=== PATIENT | female | born 1980 | race Caucasian/White ===

== ENCOUNTER 2024-02-11 21:17 | Outpatient (REF) | payer OTHER, SELFPAY | END 2024-02-11 21:18 | disposition home or self-care (01) | LOC: LAB 21:17 | PROVIDERS: Visit Provider Physician Assistant | DX: Z01.419 Encounter for gynecological examination (general) (routine) without abnormal findings (principal) | CPT/HCPCS: 87624; 88175 ==

== ENCOUNTER 2025-02-15 20:48 | Outpatient (REF) | payer OTHER, SELFPAY ==
--- OUTSIDE RECORDS SUMMARY | 2025-02-15 10:04 | XMS_ITS ---
Author Name Auto Generated Organization OHIP Care Team Providers Care Yoga Teacher Name Role Phone VAL PUGH Attending Unavailable HAYLEE DHALIWAL Attending Unavailable HAYLEE DHALIWAL Admitting Unavailable JOSH GONZALEZ Consulting Unavailable HAYLEE DHALIWAL Referring Unavailable JOSH GONZALEZ Consulting Unavailable Eamon LAMB Attending Unavailable Eamon LAMB Attending Unavailable PROBLEMS No Problem Records Found PROCEDURES No Procedure Records Found RESULTS ALLERGIES DATE TYPE / CODE NAME / CODE REACTION SEVERITY SOURCE [id number](SNOMED CT) No Known Allergies [facility] [id number](SNOMED CT) Unable to obtain [facility] ENCOUNTERS ADMIT/DISCHARGE ACCOUNT NUMBER ADMITTING ENCOUNTER CLASS LOCATION SOURCE 02/15/2025/ 5 [id number] Ambulatory Building:N[facility] S [facility] OB [facility] 03/19/2024/ 5 [id number] Ambulatory FTBuilding :[facility] 03/15/2024/ 5 [id number] Ambulatory FTBuilding :[facility] 02/12/2024/ 4 [id number] HAYLEE DHALIWAL Ambulatory FTBuilding :[facility] PAYERS ENCOUNTER GUARANTOR PAYER SUBSCRIBER SOURCE 02/15/2025 HEENA CAROLINEINEDOB: [place], [place] [address]Llo: () Primary Insurance:[facility] Number: [id number] Date:7313-29-45Dt an Name:ELIS MONAE [id number] MARÍA CEJA [id number]: MAURA VELAZQUEZINEDOB: [id number] [place] [address] [facility] 03/19/2024 HEENA L EVERETT BRIGHTTELLINEDOB: [address] STTel: (HP) Primary Insurance:AETNAPo licy Number: Effective Date:[id number], [place] [address]YW: MAURA MOORE [facility] 03/15/2024 HEENA BRIGHTTELLINEDOB: [facility] ([facility] Primary Insurance:AETNAPo licy Number: Effective Date:[id number], [place] [address]AO: MAURA MOORE [facility] 02/12/2024 HEENA Kwame EVERETT BRIGHTTELLINEDOB: [facility] (HP) Primary Insurance:AETNAPo licy Number: Effective Date:[id number], [place] [address]QA: MAURA MOORE [facility]
[2025-02-22 08:08] LABS: Age Gdln ACOG Testing Note (.); IGP, Aptima HPV, rfx 16/18,45 Note (.)
== END 2025-02-15 20:49 | disposition home or self-care (01) ==
LOC: LAB 20:48
PROVIDERS: Visit Provider Nurse Practitioner Family
DX: Z01.419 Encounter for gynecological examination (general) (routine) without abnormal findings (principal)
CPT/HCPCS: 87624; 88175